=== PATIENT | female | born 1990 | race Caucasian/White ===

== ENCOUNTER 2017-09-30 14:46 | Emergency (ER) | payer BC ==
[2017-09-30 15:21] VITALS: BP 148/96
--- NOTE | 2017-09-30 15:41 | UC ---
Throat Pain/Nasal [place] HPI - HPI Summary HPI Summary: 1) COUGH CONGESTION SORE THROAT FEVER FOR TWO WEEKS. 2) LEFT ELBOW OCCASIONALLY GETS ITCHY RASH; SPONTANEOUSLY OCCURS AND SPONTANEOUSLY RESOLVES. NO KNOWN IRRITANT. - History of Current Complaint Chief Complaint: UCGeneralIllness Stated Complaint: COLD Time Seen by Provider: 09/30/17 15:13 Hx Obtained From: Patient Hx Last Menstrual Period: Impl[place] Onset/Duration: Gradual Onset, Lasting Weeks Severity: Moderate Cough: Productive Associated Signs & Symptoms: Positive: Hoarseness, Sinus Discomfort, Nasal Discharge, Fever - Epiglottits Risk Factors Epiglottis Risk Factors: Negative - Allergies/Home Medications Allergies/Adverse Reactions: Allergies Allergy/AdvReac Type Severity Reaction Status Date / Time No Known Allergies Allergy Verified 09/30/17 15:21 Home Medications: Home Medications Levothyroxine TAB* [Synthroid TAB*] 175 mcg PO 0600 09/30/17 [History Confirmed 09/30/17] Loratadine 10 mg PO DAILY 09/30/17 [History Confirmed 09/30/17] PMH/Surg Hx/FS Hx/Imm Hx Previously Healthy: Yes - Surgical History Surgical History: Yes Surgery Procedure, Year, and Place: Repair right miniscus. Left ankle ligament replaced w/ cadaver. Appy - Family History Known Family History: Positive: Other - FATHER HAS ECZEMA Negative: Respiratory Disease - Social History Occupation: Employed Full-time Lives: With Family Alcohol Use: Rare Substance Use Type: None Smoking Status (MU): Never Smoked Tobacco Review of Systems Constitutional: Fever, Fatigue Skin: Negative Eyes: Negative ENT: Sore Throat, Ear Ache, Sinus Congestion, Sinus Pain/Tenderness Respiratory: Cough Cardiovascular: Negative Gastrointestinal: Negative Genitourinary: Negative Motor: Negative Neurovascular: Negative Musculoskeletal: Negative Neurological: Negative Psychological: Negative Is Patient Immunocompromised?: No All Other Systems Reviewed And Are Negative: Yes Physical Exam Triage Information Reviewed: Yes Appearance: No Pain Distress, Well-Nourished, Ill-Appearing Vital Signs: Initial Vital Signs Temp 97.8 F 09/30/17 15:17 Pulse 110 09/30/17 15:17 Resp 16 09/30/17 15:17 BP 148/96 09/30/17 15:17 Pulse Ox 100 09/30/17 15:17 Vital Signs Reviewed: Yes Eye Exam: Normal ENT: Positive: Nasal congestion, Nasal drainage, TM bulging, TM dull Dental Exam: Normal Neck exam: Normal Neck: Positive: Supple, Nontender Respiratory Exam: Normal Respiratory: Positive: Chest non-tender, Lungs clear, Normal breath sounds, No respiratory distress Cardiovascular Exam: Normal Cardiovascular: Positive: RRR, No Murmur Abdominal Exam: Normal Abdomen Description: Positive: Nontender, No Organomegaly Musculoskeletal Exam: Normal Musculoskeletal: Positive: Strength Intact, ROM Intact Neurological Exam: Normal Psychological Exam: Normal Skin: Positive: rashes - 2CM X 2CM DRY SCALY PAPULAR RASH ON DORSAL LEFT ELBOW WITH EXCORIATIONS Throat Pain/Nasal Course/Dx - Differential Dx/Diagnosis Differential Diagnosis/HQI/PQRI: Pharyngitis, Sinusitis, URI Provider Diagnoses: SINUSITIS; LEFT ELBOW CONTACT DERMATITIS Discharge - Discharge Plan Condition: Stable Disposition: HOME Prescriptions: Amoxicillin/Clavulanate TAB* [Augmentin TAB 875*] 875 mg PO BID #20 tab Triamcinolone 0.1% CREAM(NF) [Kenalog Cream 0.1%(NF)] 1 applic TOPICAL TID #1 tube Patient Education Materials: Contact Dermatitis (ED), Sinusitis (ED) Referrals: [facility] REFERRAL [Outside] No Primary Care Phys,NOPCP [Primary Care Provider] - Images Front/Back of Body, Lg (Irion): 1 - 2CM X 2CM DRY SCALY PAPULAR RASH ON DORSAL LEFT ELBOW WITH EXCORIATIONS
== END 2017-09-30 15:43 | disposition home or self-care (01) ==
LOC: UCCORT 14:46
DX: J32.9 Chronic sinusitis, unspecified (principal); L25.9 Unspecified contact dermatitis, unspecified cause
CPT/HCPCS: 99212; G0463

== ENCOUNTER 2018-02-23 13:04 | Emergency (ER) | payer BC ==
[2018-02-23 13:24] VITALS: BP 119/69
--- NOTE | 2018-02-23 13:35 | UC ---
Back Pain HPI - HPI Summary HPI Summary: Pt has had mid to lower back pain for the last 3 months. She saw her PCP 2 days ago for this and he ordered XRs, which she has not done yet. Since that time her symptoms have increased and now she feels her back is having spasms. She has been taking ibuprofen, which helps but only mildly and for a short time. Denies fever, chills, SOB, chest pain, abdominal pain, n/v/d/c, dysuria, saddle anesthesia, numbness, or tingling. - History of Current Complaint Hx Obtained From: Patient Hx Last Menstrual Period: nexplanon Onset/Duration: Gradual Onset Timing: Constant Severity Initially: Mild Severity Currently: Moderate Pain Intensity: 5 Pain Scale Used: 0-10 Numeric Aggravating Factor(s): Movement, Lifting Alleviating Factor(s): Rest, Position <Dhaval Paulino - Last Filed: 02/23/18 14:56> <Dariela Gonzalez - Last Filed: 02/24/18 20:17> - History of Current Complaint Chief Complaint: UCBackPain Stated Complaint: BACK PAIN Time Seen by Provider: 02/23/18 13:34 - Allergies/Home Medications Allergies/Adverse Reactions: Allergies Allergy/AdvReac Type Severity Reaction Status Date / Time No Known Allergies Allergy Verified 02/23/18 13:24 Home Medications: Home Medications Aspirin TAB* [Aspirin 325 MG TAB*] 325 mg PO DAILY 02/23/18 [History Confirmed 02/23/18] PMH/Surg Hx/FS Hx/Imm Hx Previously Healthy: Yes Endocrine History: Hypothyroidism - Surgical History Surgical History: Yes Surgery Procedure, Year, and Place: Repair right miniscus. Left ankle ligament replaced w/ cadaver. Appy - Family History Known Family History: Positive: Other - FATHER HAS ECZEMA Negative: Respiratory Disease - Social History Occupation: Employed Full-time Lives: With Family Alcohol Use: Rare Substance Use Type: None Smoking Status (MU): Never Smoked Tobacco <Dhaval Paulino - Last Filed: 02/23/18 14:56> Review of Systems Constitutional: Negative Skin: Negative Respiratory: Negative Cardiovascular: Negative Gastrointestinal: Negative Genitourinary: Negative Neurovascular: Negative Musculoskeletal: Other: - LBP Neurological: Negative Psychological: Negative All Other Systems Reviewed And Are Negative: Yes <Dhaval Paulino - Last Filed: 02/23/18 14:56> Physical Exam - Summary Physical Exam Summary: GENERAL: NAD. WDWN. No pain distress. SKIN: No rashes, sores, ulcers, masses, lesions. No ecchymosis NECK: Supple. FROM. Nontender. No lymphadenopathy. CHEST: CTAB. No r/r/w. No accessory muscle use. Breathing comfortably and in no distress. CV: RRR. Without m/r/g. Pulses intact. Brisk cap refill. MSK: TTP over lumbar paraspinal muscles. Pain with flexion and extension of spine. Positive SLR b/l. Strength 5/5 B/L LEs including dorsiflexion and plantar flexion. FROM B/L LEs. No edema. NEURO: Alert. CN II-XII grossly intact. Sensations intact B/L LEs L3-S1. PSYCH: Age appropriate behavior. Triage Information Reviewed: Yes Vital Signs: Initial Vital Signs Temp 98.4 F 02/23/18 13:19 Pulse 83 02/23/18 13:19 Resp 18 02/23/18 13:19 BP 119/69 02/23/18 13:19 Pulse Ox 100 02/23/18 13:19 <Dhaval Paulino - Last Filed: 02/23/18 14:56> Vital Signs: Initial Vital Signs Temp 98.4 F 02/23/18 13:19 Pulse 83 02/23/18 13:19 Resp 18 02/23/18 13:19 BP 119/69 02/23/18 13:19 Pulse Ox 100 02/23/18 13:19 <Dariela Gonzalez - Last Filed: 02/24/18 20:17> Back Pain Course/Dx - Course Course Of Treatment: XR: IMPRESSION: STRAIGHTENING OF THE LUMBAR LORDOSIS. MILD DEGENERATIVE DISC DISEASE. IMPRESSION: Negative bilateral hip series. IM toradol given in clinic. Rx for flexeril. F/u with PCP - Differential Dx/Diagnosis Provider Diagnoses: Low back spasm <Dhaval Paulino - Last Filed: 02/23/18 14:56> Discharge - Sign-Out/Discharge Documenting (check all that apply): Discharge - Billing Disposition and Condition Condition: STABLE Disposition: HOME <Dhaval Paulino - Last Filed: 04/06/18 14:56> - Sign-Out/Discharge Documenting (check all that apply): Discharge - Billing Disposition and Condition Condition: STABLE Disposition: HOME <Dariela Gonzalez - Last Filed: 02/24/18 20:17> - Discharge Plan Condition: Stable Disposition: HOME Prescriptions: Cyclobenzaprine TAB* [Flexeril 10 MG TAB*] 10 mg PO BID PRN #10 tab PRN Reason: Pain Patient Education Materials: Muscle Spasm (ED), Lower Back Exercises (ED) Referrals: CORBY Siddiqui [Primary Care Provider] - Additional Instructions: If you develop a fever, shortness of breath, chest pain, new or worsening symptoms - please call your PCP or go to the ED. Attestation Statement User Type: Provider - I was available for consult. This patient was seen by the SUSAN. The patient was not presented to, seen by, or examined by me. -Stacey <Dariela Gonzalez - Last Filed: 02/24/18 20:17>
[2018-02-23] MEDS ORDERED: Ketorolac INJ* 30 MG/ML 1 ML VIAL IM ONE (14:10)
--- NOTE | 2018-02-23 14:16 | RAD ---
HISTORY: Pain. No other history is provided. COMPARISONS: None VIEWS: 5 , Frontal, lateral, coned-down lateral sacral, and bilateral oblique views of the lumbar spine. FINDINGS: ALIGNMENT: There is straightening of the normal lumbar lordosis. VERTEBRAL BODIES: The vertebral body heights are normal. The interpedicular distances are normal. JOINTS: The facet joints are normal. INTERVERTEBRAL DISCS: There is mild diffuse loss of intervertebral disc height. SOFT TISSUE: Unremarkable. OTHER: The pelvis is unremarkable. The lung bases are clear. IMPRESSION: STRAIGHTENING OF THE LUMBAR LORDOSIS. MILD DEGENERATIVE DISC DISEASE.
--- NOTE | 2018-02-23 14:16 | RAD ---
Indication: Bilateral hip pain. Comparison: No relevant prior exams available on the [facility] PACS for comparison. Technique: AP pelvis and AP and frog-leg lateral views bilateral hips. Report: The hips are normally located and demonstrates preserved joint spaces. Normal proximal femur and acetabular morphology. No hip or pelvic fracture, stress reaction, or focal osseous lesion evident. Unremarkable sacroiliac joints and pubic symphysis. Unremarkable soft tissue contours. IMPRESSION: Negative bilateral hip series.
== END 2018-02-23 14:28 | disposition home or self-care (01) ==
LOC: UCCORT 13:04
DX: M62.830 Muscle spasm of back (principal); Z91.19 Patient's noncompliance with other medical treatment and regimen
CPT/HCPCS: 72110; 73523; 81003; 96372; 99212; G0463; J1885

== ENCOUNTER 2018-05-28 10:58 | Emergency (ER) | payer BC ==
[2018-05-28 11:26] VITALS: BP 119/73
--- NOTE | 2018-05-28 12:11 | ED ---
Lower Extremity - HPI Summary HPI Summary: 27 yr female with the complaint of left foot pain, moderate pain, worse with weight bearing. She fell down some stairs, twisted right knee a little and then landed on the left foot. She bears weight and walks fine on her right leg , but her left foot is what is really hurting her. No other complaint.s - History of Current Complaint Chief Complaint: UCLowerExtremity Stated Complaint: S/P FALL-RT KNEE/LFT FOOT PAIN Time Seen by Provider: 05/28/18 11:46 Hx Last Menstrual Period: nexplanon Pain Intensity: 3 - Allergies/Home Medications Allergies/Adverse Reactions: Allergies Allergy/AdvReac Type Severity Reaction Status Date / Time No Known Allergies Allergy Verified 05/28/18 11:23 Home Medications: Home Medications Ibuprofen TAB* [Advil TAB*] 600 mg PO Q6H PRN 05/28/18 [History Confirmed ] PMH/Surg Hx/FS Hx/Imm Hx Endocrine/Hematology History: Reports: Hx Thyroid Disease - Surgical History Surgery Procedure, Year, and Place: Repair right miniscus. Left ankle ligament replaced w/ cadaver. [facility]y Infectious Disease History: No Infectious Disease History: Denies: Traveled Outside the [place] in Last 30 Days - Family History Known Family History: Positive: Other - FATHER HAS ECZEMA Negative: Respiratory Disease - Social History Occupation: Employed Full-time Alcohol Use: Occasionally Substance Use Type: Reports: None Smoking Status (MU): Never Smoked Tobacco Review of Systems Constitutional: Negative Positive: Other - left foot pain. All Other Systems Reviewed And Are Negative: Yes Physical Exam Triage Information Reviewed: Yes Vital Signs On Initial Exam: Initial Vitals Temp Pulse Resp BP Pulse Ox 98.2 F 77 18 119/73 99 05/28/18 11:20 05/28/18 11:20 05/28/18 11:20 05/28/18 11:20 05/28/18 11:20 Vital Signs Reviewed: Yes Appearance: Positive: Well-Appearing, No Pain Distress Skin: Positive: Warm, Skin Color Reflects Adequate Perfusion Head/Face: Positive: Normal Head/Face Inspection Eyes: Positive: EOMI Neck: Positive: Nontender Respiratory/Lung Sounds: Positive: Clear to Auscultation, Breath Sounds Present Cardiovascular: Positive: Pulses are Symmetrical in both Upper and Lower Extremities Abdomen Description: Negative: Distended Musculoskeletal: Positive: Other - right knee full range of motion, no effusion. Left foot is tender over the left 1st and 2nd MP areas. No STS. Neurological: Positive: Sensory/Motor Intact, Alert, Oriented to Person Place, Time, CN Intact II-III Psychiatric: Positive: Normal - Wilian Coma Scale Best Eye Response: 4 - Spontaneous Best Motor Response: 6 - Obeys Commands Best Verbal Response: 5 - Oriented Coma Scale Total: 15 Diagnostics - Vital Signs Vital Signs Temp Pulse Resp BP Pulse Ox 05/28/18 11:20 98.2 F 77 18 119/73 99 - Laboratory Lab Statement: Any lab studies that have been ordered have been reviewed, and results considered in the medical decision making process. - Radiology foot Xray Interpretation: No Acute Changes Radiology Interpretation Completed By: Radiologist Lower Extremity Course/Dx - Course Course Of Treatment: 27 yr old with contusion to foot. Plan DC home. Post op shoe - Diagnoses Provider Diagnoses: Contusion of foot, left Discharge - Sign-Out/Discharge Documenting (check all that apply): Discharge/Admit/Transfer - Discharge Plan Condition: Good Disposition: HOME Patient Education Materials: Foot Contusion (ED) Referrals: No Primary Care Phys,NOPCP [Primary Care Provider] - Espinoza Shrestha MD [Medical Doctor] - 2 Days - Billing Disposition and Condition Condition: GOOD Disposition: Home
--- NOTE | 2018-05-28 12:14 | RAD ---
HISTORY: trauma foot, left foot injury COMPARISONS: None VIEWS: 3, Frontal, lateral, and oblique views of the left foot FINDINGS: BONE DENSITY: Normal. BONES: There is no displaced fracture. JOINTS: There is no arthropathy. ALIGNMENT: There is no dislocation. SOFT TISSUES: Unremarkable. OTHER FINDINGS: None. IMPRESSION: NO ACUTE OSSEOUS INJURY. IF SYMPTOMS PERSIST, RECOMMEND REPEAT IMAGING.
== END 2018-05-28 13:09 | disposition home or self-care (01) ==
LOC: UCCORT 10:58
DX: S90.32XA Contusion of left foot, initial encounter (principal); W10.9XXA Fall (on) (from) unspecified stairs and steps, initial encounter; Y93.01 Activity, walking, marching and hiking; Y92.9 Unspecified place or not applicable
CPT/HCPCS: 99211; G0463

== ENCOUNTER 2018-09-18 14:13 | Emergency (ER) | payer BC ==
--- NOTE | 2018-09-18 15:00 | UC ---
UC General HPI - HPI Summary HPI Summary: pt c/o r ear canal having a spot that is sore, itchy and dry but sometimes weeps for the past 2 months. the past 2 weeks pt was having allergy nasal symptoms; however, she is now much worse with sinus congestion, pain, pressure, drainage and nausea. - History of Current Complaint Stated Complaint: SINUS COMPLAINT/RT EAR PAIN Time Seen by Provider: 09/18/18 14:45 Hx Obtained From: Patient Hx Last Menstrual Period: nexplanon - Allergy/Home Medications Allergies/Adverse Reactions: Allergies Allergy/AdvReac Type Severity Reaction Status Date / Time No Known Allergies Allergy Verified 09/18/18 14:58 Home Medications: Home Medications Etonogestrel [Nexplanon] 68 mg IMPLANT 09/18/18 [History] Pseudoephedrine TAB* [Sudafed TAB*] 30 mg PO Q6H PRN 09/18/18 [History Confirmed 09/18/18] PMH/Surg Hx/FS Hx/Imm Hx - Additional Past Medical History Additional PMH: allergies Endocrine History: Thyroid Disease - Surgical History Surgical History: Yes Surgery Procedure, Year, and Place: Repair right miniscus. Left ankle ligament replaced w/ cadaver. Appy - Family History Known Family History: Positive: Other - FATHER HAS ECZEMA Negative: Respiratory Disease - Social History Occupation: Employed Full-time Alcohol Use: Occasionally Substance Use Type: None Smoking Status (MU): Never Smoked Tobacco - Immunization History Vaccination Up to Date: Yes Review of Systems Constitutional: Negative Skin: Negative Eyes: Negative ENT: Ear Ache, Nasal Discharge, Sinus Congestion, Sinus Pain/Tenderness Respiratory: Negative Cardiovascular: Negative Gastrointestinal: Nausea Genitourinary: Negative Motor: Negative Neurovascular: Negative Musculoskeletal: Negative Neurological: Negative Psychological: Negative Is Patient Immunocompromised?: No All Other Systems Reviewed And Are Negative: Yes Physical Exam Triage Information Reviewed: Yes Appearance: Well-Appearing Vital Signs Reviewed: Yes Eyes: Positive: Conjunctiva Clear ENT: Positive: Pharynx normal, Nasal congestion, TMs normal - L canal is clear. Just inside R canal is a red spot with a scab that is tender., Sinus tenderness. Negative: Nasal drainage Neck: Positive: Supple, Nontender, No Lymphadenopathy. Negative: Nuchal Rigidity Respiratory: Positive: Lungs clear, Normal breath sounds Cardiovascular: Positive: RRR, No Murmur Abdomen Description: Positive: Nontender, No Organomegaly, Soft Bowel Sounds: Positive: Present Musculoskeletal: Positive: ROM Intact Neurological: Positive: Alert Psychological: Positive: Age Appropriate Behavior Skin Exam: Normal Course/Dx - Course Course Of Treatment: During triage, c/o feeling shakey and dizzy if has not had something to eat. bs, non [id number]. - Differential Dx - Multi-Symptom Provider Diagnoses: sinusitis, focal infection R external ear canal Discharge - Sign-Out/Discharge Documenting (check all that apply): Patient Departure All imaging exams completed and their final reports reviewed: No Studies - Discharge Plan Condition: Stable Disposition: HOME Prescriptions: Amoxicillin/Clavulanate TAB* [Augmentin TAB 875*] 875 mg PO BID 10 Days #20 tab Ciproflox/Dexameth OTIC.SUSP* [Ciprodex OTIC.SUSP*] 4 drop .SEE ORDER BID 7 Days #1 btl Patient Education Materials: Sinusitis (ED), Otitis Externa (ED), Non-diabetic Hypoglycemia (ED) Referrals: CORBY Siddiqui [[facility], OTHER] - 5 Days - Billing Disposition and Condition Condition: STABLE Disposition: Home - Attestation Statements Provider Attestation: Per institutional requirements, I have reviewed the chart, however, I was not consulted specifically or made aware of this patient by the midlevel provider. I did not personally evaluate, interact with , or disposition this patient.
[2018-09-18 15:09] VITALS: BP 129/85
== END 2018-09-18 15:32 | disposition home or self-care (01) ==
LOC: UCCORT 14:13
DX: J32.9 Chronic sinusitis, unspecified (principal); H60.391 Other infective otitis externa, right ear; R42 Dizziness and giddiness; R25.9 Unspecified abnormal involuntary movements
CPT/HCPCS: 99212; G0463

== ENCOUNTER 2019-02-24 14:12 | Emergency (ER) | payer BC ==
[2019-02-24 15:02] VITALS: BP 136/94
[2019-02-24] MEDS ORDERED: Ondansetron ODT TAB* 4 MG PO ONE (15:06)
--- NOTE | 2019-02-24 15:14 | UC ---
Abdominal Pain Female HPI - HPI Summary HPI Summary: Nausea without vomiting going on 5 days. Diarrhea x 3 days. Chills, headaches, body aches. No mucus or blood in the stool. - History of Current Complaint Chief Complaint: UCGI Stated Complaint: DIARRHEA Hx Obtained From: Patient Hx Last Menstrual Period: 02/11/19 ?: No Onset/Duration: Sudden Onset, Lasting Days - 5, Worse Since - last 3 days Timing: Constant Severity Initially: Mild Severity Currently: Mild Pain Intensity: 3 Location: Diffuse Character: Cramping - with diarrhea Aggravating Factor(s): Food Alleviating Factor(s): Nothing Associated Signs and Symptoms: Positive: Diaphoresis, Decreased Appetite, Nausea , Diarrhea. Negative: Cough, Constipation, Urinary Symptoms, Vomiting Allergies/Adverse Reactions: Allergies Allergy/AdvReac Type Severity Reaction Status Date / Time No Known Allergies Allergy Verified 02/24/19 14:50 Home Medications: Home Medications Bismuth Subsalicylate [Pepto-Bismol] 30 ml PO PRN 02/24/19 [History] PMH/Surg Hx/FS Hx/Imm Hx Endocrine History: Hypothyroidism - Surgical History Surgical History: Yes Surgery Procedure, Year, and Place: Repair right miniscus. Left ankle ligament replaced w/ cadaver. Appy - Family History Known Family History: Positive: Diabetes, Other - FATHER HAS ECZEMA Negative: Respiratory Disease - Social History Occupation: Employed Full-time Lives: With Family Alcohol Use: Occasionally Substance Use Type: None Smoking Status (MU): Never Smoked Tobacco - Immunization History Vaccination Up to Date: Yes Review of Systems All Other Systems Reviewed And Are Negative: Yes Constitutional: Positive: Chills, Fatigue Gastrointestinal: Positive: Diarrhea, Nausea Is Patient Immunocompromised?: No Physical Exam Triage Information Reviewed: Yes Appearance: No Pain Distress, Ill-Appearing, Obese Vital Signs: Initial Vital Signs Temp 98.2 F 02/24/19 14:52 Pulse 90 02/24/19 14:52 Resp 18 02/24/19 14:52 BP 136/94 02/24/19 14:52 Pulse Ox 99 02/24/19 14:52 Vital Signs Reviewed: Yes Eyes: Positive: Conjunctiva Clear ENT: Positive: Pharynx normal, TMs normal Neck exam: Normal Respiratory Exam: Normal Cardiovascular Exam: Normal Abdomen Description: Positive: No Organomegaly, Soft. Negative: Nontender - mild epigastric tenderness, McBurney's Point Tenderness, Peritoneal Signs Bowel Sounds: Positive: Hyperactive Musculoskeletal Exam: Normal Neurological Exam: Normal Psychological Exam: Normal Skin Exam: Normal Abd Pain Female Course/Dx - Differential Dx/Diagnosis Differential Diagnosis: Appendicitis, Diverticulitis, Urinary Tract Infection Provider Diagnosis: Gastroenteritis Discharge - Sign-Out/Discharge Documenting (check all that apply): Patient Departure All imaging exams completed and their final reports reviewed: No Studies - Discharge Plan Condition: Stable Disposition: HOME Prescriptions: Ondansetron ODT TAB* [Zofran 4 MG Odt TAB*] 4 mg PO Q6H PRN #30 tab.odt PRN Reason: Nausea Patient Education Materials: Gastroenteritis (ED), Ondansetron (By mouth) Referrals: No Primary Care Phys,NOPCP [Primary Care Provider] - - Billing Disposition and Condition Condition: STABLE Disposition: Home
== END 2019-02-24 15:43 | disposition home or self-care (01) ==
LOC: UCCORT 14:12
DX: K52.9 Noninfective gastroenteritis and colitis, unspecified (principal)
CPT/HCPCS: 99212; A9270-GY; G0463

== ENCOUNTER 2019-08-13 17:26 | Emergency (ER) | payer SELFPAY ==
[2019-08-13 18:28] VITALS: BP 130/78
--- NOTE | 2019-08-13 18:50 | UC ---
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 Patient notes sharp throbbing pain that is worse with ambulating. States it is better with rest. Denies numbness and tingling. Denies decreased ROM. Denies hip or ankle pain. Notes that she has had a torn meniscus in that knee about ten years ago. - History of Current Complaint Chief Complaint: UCLowerExtremity Stated Complaint: KNEE INJURY Time Seen by Provider: 08/13/19 18:47 Hx Obtained From: Patient Hx Last Menstrual Period: nexplanon Onset/Duration: Sudden Onset, Lasting Hours Severity Initially: Mild Severity Currently: Mild Pain Intensity: 3 Pain Scale Used: 0-10 Numeric Character: Sharp, Throbbing Aggravating Factor(s): Movement, Weight Bearing Alleviating Factor(s): Rest Associated Signs And Symptoms: Negative: Swelling, Redness, Bruising, Numbness, Tingling - Allergies/Home Medications Allergies/Adverse Reactions: Allergies Allergy/AdvReac Type Severity Reaction Status Date / Time No Known Allergies Allergy Verified 08/13/19 18:30 Home Medications: Home Medications Ibuprofen TAB* [Motrin TAB* 600 MG] 600 mg PO Q6H PRN 08/13/19 [History Confirmed 08/13/19] PMH/Surg Hx/FS Hx/Imm Hx Endocrine History: Hypothyroidism - Surgical History Surgical History: Yes Surgery Procedure, Year, and Place: Repair right miniscus. Left ankle ligament replaced w/ cadaver. [facility] - Family History Known Family History: Positive: Diabetes, Other - FATHER HAS ECZEMA, Non- Contributory Negative: Respiratory Disease - Social History Alcohol Use: Occasionally Substance Use Type: None Smoking Status (MU): Never Smoked Tobacco - Immunization History Vaccination Up to Date: Yes Review of Systems All Other Systems Reviewed And Are Negative: No Constitutional: Positive: Negative. Negative: Fever, Chills, Fatigue Skin: Positive: Negative. Negative: Rash, Bruising Respiratory: Positive: Negative Cardiovascular: Positive: Negative Motor: Negative: Decreased ROM, Weakness Neurovascular: Negative: Decreased Sensation Musculoskeletal: Positive: Arthralgia. Negative: Calf Tenderness, Decreased ROM , Edema Neurological: Negative: Headache, Paresthesia, Numbness Physical Exam Triage Information Reviewed: Yes Appearance: Well-Appearing, No Pain Distress, Well-Nourished, Obese Vital Signs: Initial Vital Signs Temp 98.3 F 08/13/19 18:23 Pulse 78 08/13/19 18:23 Resp 16 08/13/19 18:23 BP 130/78 08/13/19 18:23 Pulse Ox 100 08/13/19 18:23 Vital Signs Reviewed: Yes Eyes: Positive: Conjunctiva Clear ENT: Positive: Hearing grossly normal Neck: Positive: Supple Respiratory: Positive: No respiratory distress Cardiovascular: Positive: Pulses Normal, Brisk Capillary Refill Musculoskeletal: Positive: Strength Intact, ROM Intact, No Edema, Other: - patient tender to palpation along LCL of right knee Neurological: Positive: Alert Psychological: Positive: Age Appropriate Behavior Skin: Positive: Other - no ecchymosis noted Diagnostics - Radiology rt knee xray Radiology Interpretation Completed By: ED Physician Summary of Radiographic Findings: no fracture Knee Pain Course/Dx - Course Course Of Treatment: I gave the patient one dose of ibuprofen here. Dr. Woods also examined knee xray with me. Discussed negative xray findings with patient and that final report will be obtained tomorrow. Patient instructed to use rest, ice, elevation , and compression to help alleviate pain symptoms. Instructed to use OTC analgesics as directed for pain relief and to use crutches to avoid putting weight on her leg. Patient instructed to follow up with the orthopedic referral given as soon as possible for further evaluation. Patient voiced understanding and agreed to treatment plan. - Differential Dx/Diagnosis Provider Diagnosis: Right knee pain Discharge ED - Sign-Out/Discharge Documenting (check all that apply): Patient Departure All imaging exams completed and their final reports reviewed: No - Discharge Plan Condition: Stable Disposition: HOME Patient Education Materials: Knee Pain (ED) Forms: *Work Release Referrals: Renan Marshall MD [Medical Doctor] - As Soon As Possible Additional Instructions: As discussed, your xrays were read by the provider who treated you tonight, and they did not show any fractures. Use rest, ice, elevation, and compression to help alleviate pain symptoms. You may use over the counter pain medications as directed for pain relief. Refrain from physical activity until pain has resolved. You may use the crutches to avoid putting weight on your leg. You should follow up with the orthopedic referral listed below as soon as possible for further evaluation. - Billing Disposition and Condition Condition: STABLE Disposition: Home - Attestation Statements Provider Attestation: Per institutional requirements, I have reviewed the chart, however, I was not consulted specifically or made aware of this patient by the midlevel provider. I did not personally evaluate, interact with , or disposition this patient.
[2019-08-13] MEDS ORDERED: Ibuprofen TAB* 600 MG PO ONE (18:58)
--- NOTE | 2019-08-14 14:26 | UC ---
- Progress Note Progress Note: Radiology report reviewed. No fracture of the right knee is noted. No joint effusion is noted. No change in management. Course/Dx - Diagnoses Provider Diagnoses: Right knee pain Discharge ED - Sign-Out/Discharge Documenting (check all that apply): Post-Discharge Follow Up All imaging exams completed and their final reports reviewed: Yes - Discharge Plan Condition: Stable Disposition: HOME Patient Education Materials: Knee Pain (ED) Forms: *Work Release Referrals: Renan Marshall MD [Medical Doctor] - As Soon As Possible Additional Instructions: As discussed, your xrays were read by the provider who treated you tonight, and they did not show any fractures. Use rest, ice, elevation, and compression to help alleviate pain symptoms. You may use over the counter pain medications as directed for pain relief. Refrain from physical activity until pain has resolved. You may use the crutches to avoid putting weight on your leg. You should follow up with the orthopedic referral listed below as soon as possible for further evaluation. - Billing Disposition and Condition Condition: STABLE Disposition: Home
== END 2019-08-13 20:05 | disposition home or self-care (01) ==
LOC: UCEAST 17:26
DX: M25.561 Pain in right knee (principal); E03.9 Hypothyroidism, unspecified
CPT/HCPCS: 99213; A9270-GY; G0463

== ENCOUNTER 2019-10-08 06:35 | Day surgery (SDC) | payer OTHER ==
--- NOTE | 2019-10-02 13:25 | HP ---
HISTORY AND PHYSICAL: DATE OF ADMISSION/SURGERY: 10/08/19 DATE OF OFFICE VISIT: 10/02/19 SURGEON: Mervat Doran MD * (DICTATED BY MICHAELA CHRISTENSEN) PROCEDURE: Right knee arthroscopy with partial meniscectomy and possible chondroplasty, possible synovectomy and possible plica excision. CHIEF COMPLAINT: Right knee pain. HISTORY OF PRESENT ILLNESS: Ms. Charles is a 29-year-old female with complaints of right knee pain. An MRI confirms the meniscus tear. She has elected to proceed with a right knee arthroscopy. PAST MEDICAL HISTORY: Hypothyroidism. PAST SURGICAL HISTORY: Right knee arthroscopy, left ankle surgery, and appendectomy. CURRENT MEDICATIONS: 1. Levothyroxine 175 mcg a day. 2. Loratadine. 3. Nexplanon. 4. Ibuprofen as needed. ALLERGIES: No known drug allergies. FAMILY HISTORY: Diabetes and cancer. SOCIAL HISTORY: She is a 29-year-old female. She lives with her fiance. She does not smoke or use drugs. REVIEW OF SYSTEMS: A complete 14-point review of systems was reviewed with the patient, was all negative or noncontributory. She denies history of DVT, PE, hepatitis C, HIV, or anesthesia problems. PHYSICAL EXAMINATION GENERAL: She is well-developed, well-nourished, in no acute distress. She is alert and oriented x3, pleasant and appropriate affect. VITAL SIGNS: She stands 64 inches tall, weighs 295 pounds, blood pressure is 128/64, heart rate 67. MUSCULOSKELETAL: Right lower extremity: The skin is intact. There are no open wounds or abrasions. There is a moderate effusion of the right knee joint. She has some tenderness along the lateral joint line. Range of motion is 5 to 120 degrees of flexion. Positive Cee's. Positive Apley's. Negative Krysta. She is distally neurovascularly intact. ASSESSMENT AND PLAN: Ms. Charles is a 29-year-old female with right knee pain , mechanical symptoms. An MRI confirms a horizontal tear of the lateral meniscus. She is elected to proceed with surgery. She is scheduled for a right knee arthroscopy with partial meniscectomy, possible chondroplasty, possible synovectomy, and possible plica excision. The surgery is scheduled for with Dr. Doran. Dr. Doran discussed the risks and benefits of the surgery at today's visit and all of her questions were answered. She will follow up with Dr. Doran 2 weeks after the surgery. MICHAELA CHRISTENSEN [id number]/[facility] #: [id number] NANCY
[~2019-10-08 06:35] MED LIST: Buffered Lidocaine 1% SYRIN* 1 ML/SYRINGE INTRADERM ONE; Dexamethasone IV* 4 MG/ML 1 ML (4 MG) IV SLOW PU ONE; Famotidine IV* 10 MG/ML 2 ML (20 mg) IV ONE; Lactated Ringers 1000 ML Bag* 1,000 ML IV SCH
[2019-10-08] MEDS ORDERED: ceFAZolin 1 GM ADVAN(*) 1 GM ADDV.VIAL IVPB ONE (07:03)
[2019-10-08] MEDS ORDERED: Dexamethasone IV* 4 MG/ML 1 ML (4 MG) ONE (07:03)
[2019-10-08] MEDS ORDERED: Famotidine IV* 10 MG/ML 2 ML (20 mg) ONE (07:03)
[2019-10-08] MEDS ORDERED: ceFAZolin 2 GM in NS PREMIX(*) 2 GM/100 ML BAG IVPB ONE (07:03)
[2019-10-08] MEDS ORDERED: methylPREDNISolone ACETATE 80* 80 MG/ML 1 ML VIAL ONE (07:29)
[2019-10-08] MEDS ORDERED: Bupivacaine 0.5%* 50 ML MDV VIAL ONE (07:29)
[2019-10-08] MEDS ORDERED: EPINEPHRINE 1 MG/ML 1 ML VIAL ONE ×2 (07:29→07:33)
[2019-10-08] MEDS ORDERED: Propofol* 10 MG/ML 20 ML BTL ONE (07:41)
[2019-10-08] MEDS ORDERED: KETAMINE HCL* 50 MG/ML 10 ML VIAL ONE (07:41)
[2019-10-08] MEDS ORDERED: Ketorolac INJ* 30 MG/ML 1 ML VIAL ONE (07:41)
[2019-10-08] MEDS ORDERED: fentaNYL* 50 MCG/ML 2 ML VIAL (100 MCG VIAL) ONE ×3 (07:41→09:32)
[2019-10-08] MEDS ORDERED: Midazolam* 1 MG/ML 2 ML VIAL (2 MG) ONE (07:41)
[2019-10-08] MEDS ORDERED: Ondansetron INJ* 2 MG/ML VIAL ONE (07:41)
[2019-10-08] MEDS ORDERED: DiMENhydriNATE IV* 50 MG/ML VIAL IV PUSH PRN (07:52)
[2019-10-08] MEDS ORDERED: Naloxone* 0.4 MG/ML 1 ML VIAL IV PRN (07:52)
[2019-10-08] MEDS ORDERED: Lidocaine 2% PF * 5 ML VIAL ONE (08:26)
[2019-10-08] MEDS: fentaNYL* 50 MCG/ML 2 ML VIAL (100 MCG VIAL) IV PRN ×4 (09:18→09:43)
[2019-10-08] MEDS ORDERED: DiMENhydriNATE IV* 50 MG/ML VIAL ONE (09:53)
[2019-10-08] MEDS ORDERED: oxyCODONE/Acetamin 5/325 MG* TAB ONE (10:05)
[2019-10-08] MEDS ORDERED: HYDROmorphone INJ1* 1 MG/ML SYRINGE ONE (10:31)
[2019-10-08] MEDS: HYDROmorphone INJ1* 1 MG/ML SYRINGE IV PRN ×2 (10:33→10:49)
[2019-10-08 12:01] VITALS: BP 101/78
--- NOTE | 2019-10-09 00:16 | OP ---
DATE OF OPERATION: 10/08/19 [facility] DATE OF : 89. ATTENDING SURGEON: Mervat Doran MD. PROSTHETIC LAB TECHNICIAN: MICHAELA Palomo. Mr. Martínez did help throughout the procedure with preparation of the leg, wound retraction, manipulation of the knee and wound closure. ANESTHESIA: General. ANESTHESIOLOGIST: Dr. Cevallos. PRE-OP DIAGNOSIS: Right knee lateral meniscal tear. POST-OP DIAGNOSES: 1. Right knee lateral meniscal tear. 2. Severe patellofemoral osteoarthritis. OPERATIVE PROCEDURE: Right knee arthroscopy with partial lateral meniscectomy and patellofemoral chondroplasty. ESTIMATED BLOOD LOSS: Less than 25 cc. SPECIMEN: None. COMPLICATIONS: None. BRIEF HISTORY/INDICATIONS: Ms. Charles is a 29-year-old female who injured herself in July while working. She had a twisting injury to the right knee and developed mechanical symptoms and pain along the lateral joint line. MRI confirms the lateral meniscal tear. The patient failed conservative treatment and wished to proceed with right knee arthroscopy with partial lateral meniscectomy. Informed consent was obtained from the patient. She understood the risks of surgery included but, were not limited bleeding, infection, damage to nearby structures, continued pain, need for further surgery , re-tear of the meniscus, progression of arthritis, stroke, heart attack, blood clot and . She wished to proceed. INTRAOPERATIVE FINDINGS: Intraoperatively, the patient was noted to have severe 3 and 4 Outerbridge cartilage changes in the patellofemoral compartment with exposed chondral bone and cartilage flapping/frying. She had a radial type tear in the lateral meniscus along the midportion in the white-red zone. DESCRIPTION FOR PROCEDURE: Ms. Charles was identified in the preanesthesia unit. Her right lower extremity was marked as the correct operative site. Informed consent was signed and placed in the chart. The patient was taken in to the operating room and placed under anesthesia without complication. Right lower extremity was prepped and draped in the usual sterile fashion. Preop time -out was made to correctly identify the patient's side and site. Appropriate perioperative antibiotics were given within 1-hour of incision. A standard anterolateral portal incision was made with a 10-blade and carried down to the capsule. Trocar was introduced. As soon as the light and water sources were turned on, there was immediate visualization of the suprapatellar pouch. A tour of the knee joint was performed. Suprapatellar pouch showed no obvious abnormality. The patellofemoral compartment showed severe end-stage arthritic changes. These were grade 3 and 4 Outerbridge cartilage changes. There was exposed chondral bone along the majority of the trochlear groove of the femur. There was cartilage frying and flaps along the medial and lateral patellar facet. Medial gutter showed no loose body or plica. Medial compartment showed some minimal degenerative changes, no obvious meniscal tear. ACL and PCL appeared to be intact. The knee was placed in the [id number]-shsi position. There was a radial tear along the midportion of the lateral meniscus that was visualized easily. Lateral compartment had some grade 2 and 3 Outerbridge cartilage changes. Lateral gutter showed no significant plica or loose body. Under direct visualization, a medial portal incision was made. The probe was introduced into the joint and a second tour of the knee joint was performed. There were no additional findings noted. Shaver and radiofrequency ablation wands were used to perform chondroplasty of the patellofemoral compartment. Cartilage flap where fraying was conservatively smoothed over and any mobile flap were excised. A straight bitter and shaver were used to perform partial lateral meniscectomy. The smooth border of the lateral meniscus was obtained along the red-white zone. Radiofrequency ablation wand was used to further smooth the edge of the meniscus. Further probing of the meniscus showed no additional tears. The knee was copiously irrigated with sterile saline. All instruments were carefully removed. The incisions were closed with 3-0 Nylon suture. Sterile, Xeroform, 4x4s, and Webril were used to cover the incision. Adam wrap and cold pack were placed over this. The patient's anesthesia was reversed without difficulty. She was taken to the PACU in stable condition. Intended weightbearing will be weightbearing as tolerated. Intended DVT prophylaxis will be aspirin. The patient will follow up in 2 weeks' time for suture removal. [id number]/[facility] #: [id number] NANCY
== END 2019-10-08 12:00 | disposition home or self-care (01) ==
LOC: OR 06:35
PROVIDERS: ATTEND Orthopaedic Surgery Adult Reconstructive Orthopaedic Surgery
DX: S83.281A Other tear of lateral meniscus, current injury, right knee, initial encounter (principal); M17.11 Unilateral primary osteoarthritis, right knee; E03.9 Hypothyroidism, unspecified; X58.XXXA Exposure to other specified factors, initial encounter; Y92.89 Other specified places as the place of occurrence of the external cause; E11.9 Type 2 diabetes mellitus without complications; Y99.0 Civilian activity done for income or pay; G47.33 Obstructive sleep apnea (adult) (pediatric); Z68.42 Body mass index [BMI] 45.0-49.9, adult
CPT/HCPCS: 81025; A9270-GY; J0690; J1040; J1100; J1170; J1240; J1885; J2250; J2405; J2704; J3010; J3490